=== PATIENT | female | born 1945 | race Caucasian/White ===

== ENCOUNTER 2016-08-15 06:20 | Day surgery (SDC) | payer MEDICARE ==
[2016-08-08 11:03] LABS: HEMATOCRIT 38.5 % (36.0-48.0); HEMOGLOBIN 13.5 g/dL (12.0-16.0)
[2016-08-08 11:09] LABS: BUN (BLOOD UREA NITROGEN) 14 MG/DL (6-23); CALCIUM, SERUM 9.3 MG/DL (8.5-10.4); CHLORIDE, SERUM 106 MMOL/L (96-112); CO2 (CARBON DIOXIDE) 31 MMOL/L (24-34); CREATININE 0.68 MG/DL (0.55-1.02); GFR AFRICAN AMERICAN 102 ML/MIN (>=60); GFR NON AFRICAN AMERICAN 88 ML/MIN (>=60); GLUCOSE, SERUM 83 MG/DL (60-99); POTASSIUM, SERUM 3.9 MMOL/L (3.5-5.3); SODIUM, SERUM 142 MMOL/L (135-148)
--- NOTE | ~2016-08-15 | OP ---
Record Of Operation [facility] [address] [place]. [address] NAME: PEPE KANG : 45 STATUS : [facility]#: [id number] AGE: 71 ADM/REG DATE : 08/15/16 MR#: [id number] REPORT SERV DATE: 08/24/16 DICTATED BY: ANNABELLA FRENCH DATE: 08/24/16 REPORT STATUS : Draft TRANSCRIBED BY: AKI DATE: 08/24/16 DATE OF PROCEDURE: 08/15/2016 PREOPERATIVE DIAGNOSIS: Basal cell carcinoma of the right cheek and left upper lip. POSTOPERATIVE DIAGNOSIS: Basal cell carcinoma of the right cheek and left upper lip. PROCEDURES: 1. Excision of right cheek basal cell carcinoma, final size of 8 mm x 6 mm with complex closure of 10 mm. 2. Excision of basal cell carcinoma of the left upper lip 5 mm x 4 mm with a complex closure of 7 mm in length. Three frozen section analysis of both specimens by Pathology. ANESTHESIA: General endotracheal anesthesia with 1% lidocaine with 1:100,000 epinephrine. ESTIMATED BLOOD LOSS: Less than 5 mL. COMPLICATIONS: None immediate. SPECIMENS: 1. Right cheek basal cell carcinoma. 2. Additional margin, right cheek basal cell carcinoma. 3. Left upper lip basal cell carcinoma. FINDINGS: Initial cheek sample had positive margins, therefore an additional sample was sent and there were negative margins on the additional sampling. INDICATION FOR THE PROCEDURE: This is a 71-year-old female who had shave biopsies of suspicious lesions of the left upper lip and right cheek area. Pathology showed basal cell carcinoma, therefore she was referred to me for definitive excision as she had positive margins on the shave biopsy. With that in mind, we discussed the risks, benefits, and alternatives of the procedure consisting of excision of the lesions with frozen section analysis and reconstruction. The risks include, but are not limited to, bleeding, infection, scarring, temporary deformity, recurrence of cancer, need for additional procedure, etc. She expressed understanding and informed consent was obtained in the preoperative clinic setting. PROCEDURE NOTE: The patient was identified in the preoperative holding area where the right cheek and left upper lip lesions were identified and marked. She had antibiotics initiated and SCDs placed prior to being transferred to the operating room. Once in the operating room, she was placed supine on the operating room table with arms tucked and all dependent joints adequately padded. After smooth induction of general endotracheal anesthesia, the facial area was prepped and draped in standard surgical fashion. The lesions were identified and appropriate measurements were taken. 1% lidocaine with 1:100,000 epinephrine was instilled in the area surrounding the tissue and allowed to set for about five minutes. Record Of Operation [facility] [address] [place]. [address] NAME: PEPE KANG : 45 STATUS : [facility]#: [id number] AGE: 71 ADM/REG DATE : 08/15/16 MR#: [id number] REPORT SERV DATE: 08/24/16 DICTATED BY: ANNABELLA FRENCH DATE: 08/24/16 REPORT STATUS : Draft TRANSCRIBED BY: AKI DATE: 08/24/16 Then, using a 15 blade scalpel, incisions were made encompassing the lesion plus an additional 1-2 mm margin. The lesions were excised full thickness down to the level of the underlying subcutaneous and muscular tissue. They were marked in the 12 o'clock position and passed off the table for pathological frozen section analysis. Electrocautery was applied very minimally to the defects, and we waited for Pathology to return the reports. After a period of time, we were told that the right cheek margin had cells near the 10-11 o'clock margin. Therefore, a 2 mm additional specimen was taken from the 9 to 12 o'clock margin and labeled appropriately with suture. This was excised with a scalpel full thickness again down to subcutaneous tissue. The lesion of the lip was identified as being free of cancer, therefore the area was irrigated with saline and the cutaneous portion of the left upper lip was elevated sharply and bluntly with scissors and electrocautery in the subcutaneous, but above the muscle plane. After I had enough mobility of that, I then focussed on just gently elevating the cutaneous portion of the mucocutaneous portion of the left upper lip. Eventually, I was able to get enough tissue mobilization and it looked as though a linear closure as opposed to the traditional vertical closure was going to provide a better cosmetic result and not have to sacrifice part of the mucocutaneous lip. With that in mind, I placed interrupted 5-0 Monocryl sutures for deep tissue approximation and then this was then followed by interrupted 6-0 Prolene sutures for cutaneous and mucocutaneous reapproximation of the left upper lip lesion. The final cosmetic result was excellent without significant elevation of the lip itself. After closure of that lesion, we were told by Pathology that the additional sample from the right cheek was negative for cancer at the margins. Therefore, the site was irrigated with saline and closed in a complex fashion. This was done by elevating the surrounding skin approximately 2 cm in a circumferential direction. The final scar was then oriented to be parallel to the nasolabial fold. This was then closed in a multiple layer fashion consisting of deep 5-0 Monocryl sutures in the subcutaneous tissue followed by interrupted 6-0 Prolene sutures in the epidermal tissue. There were small dog ears on both edges of the incision, therefore they were excised and passed off the table and additional sutures were placed. The overall cosmetic appearance of this area was again excellent. The lesions were then cleansed and antibiotic ointment and bandages were placed. The patient tolerated the procedure well without any initial sign of complication. She was awakened extubated and transported to postanesthesia care unit where she was recovered without any sign of difficulty. Sponge and instrument counts were correct and verified in case. CMM/MODL Annabella French MD / [id number] CC: MD Abram Dowling M.D.
[~2016-08-15 06:20] MED LIST: ACTONEL150 MG PO; ADVAIR100; ALBUTERAL INHALER; ALLERGY SHOTS; AREDS EYE VIT; BABY ASA; CALTRA600D PO; CENTRUM PO; FLAXSEED OIL1000 MG PO; METPAKSF PO; OSTEO BIFLEX
== END 2016-08-15 23:59 | disposition home or self-care (01) ==
LOC: MSC 06:20
PROVIDERS: Plastic Surgery
PROC: 0WB20ZZ Excision of Face, Open Approach (ICD-10-PCS; principal; 2016-08-15 07:45)
DX: C44.319 Basal cell carcinoma of skin of other parts of face (principal); C44.01 Basal cell carcinoma of skin of lip; M19.90 Unspecified osteoarthritis, unspecified site; J45.909 Unspecified asthma, uncomplicated; Z88.2 Allergy status to sulfonamides; Z88.8 Allergy status to other drugs, medicaments and biological substances; Z98.51 Tubal ligation status
CPT/HCPCS: 80048; 85014; 85018; 88305; 88331; 93005; A9270-GY; J0690; J2405; J2710; J3010